=== PATIENT | male | born 1995 | race Caucasian/White ===

== ENCOUNTER 2018-07-18 11:43 | Emergency (ER) | payer BC ==
[2018-07-18 11:48] VITALS: BP 141/51
[2018-07-18] MEDS ORDERED: NORMAL SALINE 1000 ML 1,000 ML IV ONE (13:10)
--- NOTE | 2018-07-18 13:14 | ER Document Report ---
ED Medical Screen (RME) - General Chief Complaint: Abdominal Cramping Stated Complaint: NAUSEA Time Seen by Provider: 07/18/18 13:10 Mode of Arrival: Ambulatory Information source: Patient Notes: 22-year-old male presented to ED for nausea vomiting muscle cramping and chest pain. He was picked up by EMS this morning after he been outside working for about 2 hours and drank 2 bottles of water and developed chest pain nausea and vomiting. At the time that EMS saw him his blood sugar was 365. He does have a history of insulin-dependent diabetes. Patient is alert oriented respirations regular and unlabored speaking in full sentences. He did receive Zofran in the ambulance and states he is not nauseated at this time. I have greeted and performed a rapid initial assessment of this patient. A comprehensive ED assessment and evaluation of the patient, analysis of test results and completion of medical decision making process will be conducted by an additional ED providers. Dictation of this chart was performed using voice recognition software; therefore, there may be some unintended grammatical errors. TRAVEL OUTSIDE OF THE [place] IN LAST 30 DAYS: No - Related Data Allergies/Adverse Reactions: No Known Allergies Allergy (Unverified 07/18/18 11:44) Past Medical History - Social History Frequency of alcohol use: Social Drug Abuse: Marijuana Endocrine Medical History: Reports: Hx Diabetes Mellitus Type 1 Renal/ Medical History: Denies: Hx Peritoneal Dialysis Physical Exam - Vital signs Vitals: Temp Pulse Resp BP Pulse Ox 97.7 F 84 16 141/51 H 98 07/18/18 11:46 07/18/18 11:46 07/18/18 11:46 07/18/18 11:46 07/18/18 11:46 Course - Vital Signs Vital signs: Temp Pulse Resp BP Pulse Ox 97.7 F 84 16 141/51 H 98 07/18/18 11:46 07/18/18 11:46 07/18/18 11:46 07/18/18 11:46 07/18/18 11:46
[2018-07-18 13:46] LABS: ABSOLUTE BASOPHILS # (AUTO) 0.1 10^3/uL (0.0-0.2); ABSOLUTE EOSINOPHILS # (AUTO) 0.1 10^3/uL (0.0-0.6); ABSOLUTE LYMPHOCYTES (AUTO) 1.4 10^3/uL (0.5-4.7); ABSOLUTE MONOCYTES (AUTO) 0.6 10^3/uL (0.1-1.4); ABSOLUTE NEUT (AUTO) 9.5 10^3/uL (1.7-8.2); BASOPHILS % (AUTO) 0.7 % (0-2); HEMATOCRIT 44.1 % (37.9-51.0); HEMOGLOBIN 15.1 g/dL (13.5-17.0); LYMPHOCYTES % (AUTO) 11.8 % (13-45); MEAN CORPUSCULAR HEMOGLOBIN 30.5 pg (27.0-33.4); MEAN CORPUSCULAR HGB CONC 34.2 g/dL (32.0-36.0); MEAN CORPUSCULAR VOLUME 89 fl (80-97); MONOCYTES % (AUTO) 5.2 % (3-13); PLATELET COUNT 255 10^3/uL (150-450); RED BLOOD COUNT 4.94 10^6/uL (4.35-5.55); RED CELL DISTRIBUTION WIDTH 13.5 % (11.5-14.0); SEGMENTED NEUTROPHILS % (AUTO) 81.3 % (42-78); TOTAL CELLS COUNTED % (AUTO) 100 %; WHITE BLOOD COUNT 11.6 10^3/uL (4.0-10.5)
[2018-07-18 13:48] LABS: VENOUS BLOOD BASE EXCESS -0.1 mmol/L; VENOUS BLOOD HCO3 26.1 mmol/L (20-32); VENOUS BLOOD PCO2 48.2 mmHg (35-63); VENOUS BLOOD PH 7.35 (7.30-7.42)
--- NOTE | 2018-07-18 14:06 | RADIOLOGY REPORT (SQ) ---
EXAM DESCRIPTION: CHEST 2 VIEWS COMPLETED DATE/TIME: 07/18/2018 1:52 pm REASON FOR STUDY: chest pain COMPARISON: None. EXAM PARAMETERS: NUMBER OF VIEWS: two views TECHNIQUE: Digital Frontal and Lateral radiographic views of the chest acquired. RADIATION DOSE: NA LIMITATIONS: none FINDINGS: LUNGS AND PLEURA: No opacities, masses or pneumothorax. No pleural effusion. MEDIASTINUM AND HILAR STRUCTURES: No masses or contour abnormalities. HEART AND VASCULAR STRUCTURES: Heart normal size. No evidence for failure. BONES: No acute findings. HARDWARE: None in the chest. OTHER: No other significant finding. IMPRESSION: NO ACUTE RADIOGRAPHIC FINDING IN THE CHEST. TECHNICAL DOCUMENTATION: JOB ID: [id number] [employer]- All Rights Reserved Reading location - IP/workstation name: [email or web address]
[2018-07-18 14:13] LABS: ALANINE AMINOTRANSFERASE 21 U/L (21-72); ALBUMIN 4.7 g/dL (3.5-5.0); ALKALINE PHOSPHATASE 73 U/L (38-126); ANION GAP 13 (5-19); ASPARTATE AMINO TRANSFERASE 20 U/L (17-59); BILIRUBIN,DIRECT 0.3 mg/dL (0.0-0.4); BILIRUBIN,TOTAL 0.7 mg/dL (0.2-1.3); BLOOD UREA NITROGEN 13 mg/dL (7-20); CALCIUM 9.9 mg/dL (8.4-10.2); CARBON DIOXIDE 26 mmol/L (22-30); CHLORIDE 100 mmol/L (98-107); GLUCOSE 287 mg/dL (75-110); POTASSIUM 4.5 mmol/L (3.6-5.0); SODIUM 139.3 mmol/L (137-145); TOTAL PROTEIN 7.1 g/dL (6.3-8.2)
[2018-07-18 14:21] LABS: CREATINE KINASE MB 0.81 ng/mL (<4.55); TROPONIN I 0.029 ng/mL
--- NOTE | 2018-07-18 22:17 | EKG REPORT ---
SEVERITY:- ABNORMAL ECG - SINUS RHYTHM PROBABLE LEFT VENTRICULAR HYPERTROPHY : Confirmed by: Danielle Drummond MD 18-Jul-2018 22:16:23
== END 2018-07-18 18:50 | disposition left against medical advice (07) ==
LOC: ER 11:43
DX: R11.2 Nausea with vomiting, unspecified (principal); R07.9 Chest pain, unspecified; R25.2 Cramp and spasm; E10.9 Type 1 diabetes mellitus without complications; Z53.20 Procedure and treatment not carried out because of patient's decision for unspecified reasons
CPT/HCPCS: 93005; 99281; 96360; 36415; 82553; 82962; 85025; 80053; 84484; 82803; 71046; 93010; J7030